=== PATIENT | female | born 1980 | race Caucasian/White ===

== ENCOUNTER 2018-06-24 07:12 | Emergency (ER) | payer MEDICAID ==
[~2018-06-24] VITALS: Ht 160 cm; Wt 90.7 kg
[2018-06-24 07:28] VITALS: Ht 160 cm; Wt 90.7 kg
[2018-06-24 08:37] VITALS: BP 160/86
== END 2018-06-24 08:37 | disposition home or self-care (01) ==
LOC: ED 07:12
DX: S93.402A Sprain of unspecified ligament of left ankle, initial encounter (principal); X50.1XXA Overexertion from prolonged static or awkward postures, initial encounter; Y93.01 Activity, walking, marching and hiking; Y92.89 Other specified places as the place of occurrence of the external cause; Y99.8 Other external cause status
CPT/HCPCS: Q0092

== ENCOUNTER 2018-10-20 17:35 | Emergency (ER) | payer MEDICAID ==
[~2018-10-20] VITALS: Ht 160 cm; Wt 92.1 kg
[2018-10-20 18:12] VITALS: BP 182/99; Ht 160 cm; Wt 92.1 kg
== END 2018-10-20 18:54 | disposition home or self-care (01) ==
LOC: ED 17:35
DX: H66.92 Otitis media, unspecified, left ear (principal)

== ENCOUNTER 2019-10-13 15:41 | Emergency (ER) | payer MEDICAID ==
[~2019-10-13] VITALS: Ht 157.5 cm; Wt 83.9 kg
[2019-10-13 16:07] VITALS: Ht 157.5 cm; Wt 83.9 kg
[2019-10-13 18:55] VITALS: BP 153/85
== END 2019-10-13 18:55 | disposition home or self-care (01) ==
LOC: ED 15:41
DX: J98.01 Acute bronchospasm (principal); I10 Essential (primary) hypertension
CPT/HCPCS: J7512; J7613

== ENCOUNTER 2020-05-31 12:12 | Emergency (ER) | payer MEDICAID, SELFPAY ==
[~2020-05-31] VITALS: Ht 160 cm; Wt 72.6 kg
[2020-05-31 12:13] VITALS: Ht 160 cm; Wt 72.6 kg
[2020-05-31 14:00] VITALS: BP 129/92
== END 2020-05-31 14:00 | disposition home or self-care (01) ==
LOC: ED 12:12
DX: U07.1 COVID-19 (principal); I10 Essential (primary) hypertension

== ENCOUNTER 2020-06-02 16:33 | Emergency (ER) | payer MEDICAID, SELFPAY ==
[~2020-06-02] VITALS: Ht 160 cm; Wt 93.4 kg
[2020-06-02 16:35] VITALS: Ht 160 cm; Wt 93.4 kg
[2020-06-02 18:32] VITALS: BP 164/104
== END 2020-06-02 18:32 | disposition home or self-care (01) ==
LOC: ED 16:33
DX: U07.1 COVID-19 (principal); J18.9 Pneumonia, unspecified organism; I10 Essential (primary) hypertension
CPT/HCPCS: Q0092

== ENCOUNTER 2020-10-05 11:10 | Emergency (ER) | payer MEDICAID ==
[~2020-10-05] VITALS: Ht 157.5 cm; Wt 98.0 kg
[2020-10-05 11:14] VITALS: Ht 157.5 cm; Wt 98.0 kg
[2020-10-05 12:20] VITALS: BP 143/89
== END 2020-10-05 12:20 | disposition home or self-care (01) ==
LOC: ED 11:10
DX: S16.1XXA Strain of muscle, fascia and tendon at neck level, initial encounter (principal); I10 Essential (primary) hypertension; X58.XXXA Exposure to other specified factors, initial encounter; Y93.89 Activity, other specified; Y92.89 Other specified places as the place of occurrence of the external cause; Y99.8 Other external cause status
CPT/HCPCS: J1885